=== PATIENT | male | born 1955 | race Caucasian/White ===

== ENCOUNTER 2020-05-15 07:34 | Day surgery (SDC) | payer MEDICARE ==
[2020-05-15] MEDS ORDERED: Xylocaine 1% Vial 30 ML PF IJ ONE (07:35)
[2020-05-15] MEDS ORDERED: Marcaine 0.5% SDV 10 ML IJ ONE (07:35)
[2020-05-15] MEDS ORDERED: Depo-Medrol 40 MG/ML IM ONE (07:35)
[2020-05-15] MEDS ORDERED: DIPRIVAN 200 MG/20 ML IV ONE (09:41)
[2020-05-15] MEDS ORDERED: Ketamine HCl 50 MG/ML ONE (09:42)
[2020-05-15] MEDS ORDERED: Lactated Ringers 1,000 ML IV ONE (13:51)
--- NOTE | 2020-05-18 17:44 | XRAY ---
Indication: Bilateral sacroiliac joints. Intraoperative fluoroscopy was provided for 14 seconds. PA and lateral digital spot films of each sacroiliac joint were obtained. A needle tip has been directed toward the inferior margin of each sacroiliac joint. Correlate with intraoperative findings/report.
--- NOTE | 2020-05-20 07:45 | XRAY ---
14 seconds fluoroscopy time in surgery for bilateral SI joint injections.
== END 2020-05-15 10:06 | disposition home or self-care (01) ==
LOC: SDC-PAIN 07:34
PROVIDERS: ATTEND Psychiatry & Neurology Pain Medicine
DX: M46.1 Sacroiliitis, not elsewhere classified (principal); E11.9 Type 2 diabetes mellitus without complications; I10 Essential (primary) hypertension; K21.9 Gastro-esophageal reflux disease without esophagitis; F41.9 Anxiety disorder, unspecified
CPT/HCPCS: 72202; 77002; 82962; G0260; 27096; J1030; J2001; J2704

== ENCOUNTER 2021-05-07 09:20 | Day surgery (SDC) | payer MEDICARE ==
[2021-05-07] MEDS ORDERED: LIDOCAINE HCL 2% 100 MG/5 ML IJ ONE (09:21)
--- NOTE | 2021-05-07 16:07 | XRAY ---
28 seconds of fluoroscopy was used in surgery for a bilateral L4-L5, L5-S1 MBB.
[2021-05-07] MEDS ORDERED: Lactated Ringers 1,000 ML IV ONE (17:31)
== END 2021-05-07 12:50 | disposition home or self-care (01) ==
LOC: SDC-PAIN 09:20
PROVIDERS: ATTEND Psychiatry & Neurology Pain Medicine
DX: M47.816 Spondylosis without myelopathy or radiculopathy, lumbar region (principal); E11.9 Type 2 diabetes mellitus without complications; I10 Essential (primary) hypertension; Z79.899 Other long term (current) drug therapy
CPT/HCPCS: 64493; 64494; 72020; 77002; 82947

== ENCOUNTER 2021-06-18 08:49 | Day surgery (SDC) | payer MEDICARE ==
[2021-06-18] MEDS ORDERED: BUPIVACAINE 0.5% VIAL IJ ONE (08:50)
[2021-06-18] MEDS ORDERED: Lactated Ringers 1,000 ML IV ONE (09:46)
[2021-06-18] MEDS ORDERED: DIPRIVAN 200 MG/20 ML IV ONE (10:46)
--- NOTE | 2021-06-18 11:42 | XRAY ---
19 seconds fluoroscopy time in surgery for bilateral L4-S1 MBB.
--- NOTE | 2021-06-18 11:42 | XRAY ---
Indication: Bilateral L4-S1 MBB. Intraoperative fluoroscopy provided for 19 seconds. Single digital spot image submitted for interpretation demonstrates posterior needle tips projecting over the expected left and right L4-S1 S1 nerve roots. Correlate with intraoperative findings/report.
== END 2021-06-18 11:18 | disposition home or self-care (01) ==
LOC: SDC-PAIN 08:49
PROVIDERS: ATTEND Psychiatry & Neurology Pain Medicine
DX: M47.816 Spondylosis without myelopathy or radiculopathy, lumbar region (principal); E11.9 Type 2 diabetes mellitus without complications; Z79.899 Other long term (current) drug therapy
CPT/HCPCS: 64493; 64494; 72020; 77002; 82947; J2704

== ENCOUNTER 2021-09-05 06:47 | Day surgery (SDC) | payer MEDICARE ==
[2021-09-05] MEDS ORDERED: BUPIVACAINE 0.5% VIAL IJ ONE (06:48)
[2021-09-05] MEDS ORDERED: Depo-Medrol 40 MG/ML IM ONE (06:48)
[2021-09-05] MEDS ORDERED: Xylocaine 1% Vial 30 ML PF IJ ONE (06:48)
[2021-09-05] MEDS ORDERED: DIPRIVAN 200 MG/20 ML IV ONE (07:58)
[2021-09-05] MEDS ORDERED: Ketamine HCl 50 MG/ML ONE (07:58)
[2021-09-05] MEDS ORDERED: Xylocaine-Mpf 2% 5 Ml Vial ONE (08:01)
[2021-09-05] MEDS ORDERED: Lactated Ringers 1,000 ML IV ONE (08:58)
--- NOTE | 2021-09-05 10:43 | XRAY ---
Indication: Right L4-S1 RFA. Intraoperative fluoroscopy provided for 40 seconds. 3 digital spot image submitted for interpretation demonstrate posterior needle tips projecting over the expected right L4-S1 nerve roots. Correlate with intraoperative findings/report.
--- NOTE | 2021-09-05 12:23 | XRAY ---
40 seconds fluoroscopy time in surgery for right L4-S1 RFA.
== END 2021-09-05 08:16 | disposition home or self-care (01) ==
LOC: SDC-PAIN 06:47
PROVIDERS: ATTEND Psychiatry & Neurology Pain Medicine
DX: M47.816 Spondylosis without myelopathy or radiculopathy, lumbar region (principal); E11.9 Type 2 diabetes mellitus without complications; I10 Essential (primary) hypertension; F41.9 Anxiety disorder, unspecified; Z79.899 Other long term (current) drug therapy
CPT/HCPCS: 64635; 64636; 72100; 77002; 82947; J1030; J2001; J2704

== ENCOUNTER 2021-09-10 11:20 | Day surgery (SDC) | payer MEDICARE ==
[~2021-09-10 11:20] MED LIST: DIPRIVAN 200 MG/20 ML IV ONE; Ketamine HCl 50 MG/ML ONE; Lactated Ringers 1,000 ML IV ONE
[2021-09-10] MEDS ORDERED: Xylocaine 1% Vial 30 ML PF IJ ONE (11:21)
[2021-09-10] MEDS ORDERED: BUPIVACAINE 0.5% VIAL IJ ONE (11:21)
[2021-09-10] MEDS ORDERED: Depo-Medrol 40 MG/ML IM ONE (11:21)
[2021-09-10] MEDS ORDERED: Xylocaine-Mpf 2% 5 Ml Vial ONE (12:29)
--- NOTE | 2021-09-10 14:12 | XRAY ---
Indication: Left L4-S1 RFA. Intraoperative fluoroscopy provided for 22 seconds. 4 digital spot image submitted for interpretation demonstrates posterior needle tips projecting over the expected left L4-S1 nerve roots. Correlate with intraoperative findings/report.
--- NOTE | 2021-09-10 15:27 | XRAY ---
22 seconds of fluoroscopy was used in surgery for a left L4-S1 RFA.
== END 2021-09-10 13:02 | disposition home or self-care (01) ==
LOC: SDC-PAIN 11:20
PROVIDERS: ATTEND Psychiatry & Neurology Pain Medicine
DX: M47.816 Spondylosis without myelopathy or radiculopathy, lumbar region (principal); Z79.891 Long term (current) use of opiate analgesic; I10 Essential (primary) hypertension; E11.8 Type 2 diabetes mellitus with unspecified complications
CPT/HCPCS: 64635; 64636; 72100; 77002; 82947; J1030; J2001; J2704

== ENCOUNTER 2022-02-04 08:32 | Day surgery (SDC) | payer MEDICARE ==
[2022-02-04] MEDS ORDERED: Sodium Chloride 0.9(Preservative Free) 10 ML IJ ONE (08:33)
[2022-02-04] MEDS ORDERED: Depo-Medrol 40 MG/ML IM ONE (08:33)
[2022-02-04] MEDS ORDERED: Lactated Ringers 1,000 ML IV ONE (10:40)
[2022-02-04] MEDS ORDERED: DIPRIVAN 200 MG/20 ML IV ONE ×2 (10:50→10:59)
--- NOTE | 2022-02-04 11:55 | XRAY ---
Indication: Left L4-S1 transforaminal QUINCY Intraoperative fluoroscopy provided for 52 seconds. 4 digital spot image submitted for interpretation demonstrates posterior needle tips projecting over the expected left L4 and L5 nerve roots. Small amount of contrast injected for needle tip placement. Correlate with intraoperative findings/report.
--- NOTE | 2022-02-04 12:11 | XRAY ---
52 seconds fluoroscopy time in surgery for left L4-S1 transforaminal QUINCY.
== END 2022-02-04 11:22 | disposition home or self-care (01) ==
LOC: SDC-PAIN 08:32
PROVIDERS: ATTEND Psychiatry & Neurology Pain Medicine
DX: M54.16 Radiculopathy, lumbar region (principal); E11.9 Type 2 diabetes mellitus without complications; Z79.899 Other long term (current) drug therapy
CPT/HCPCS: 64483; 64484; 72100; 77003; 82947; J1030; J2704; Q9966

== ENCOUNTER 2022-07-29 08:30 | Day surgery (SDC) | payer MEDICARE ==
[2022-07-29] MEDS ORDERED: Marcaine Mpf 0.5% Vial 30 Ml IJ ONE (08:31)
[2022-07-29] MEDS ORDERED: Depo-Medrol 40 MG/ML IM ONE (08:31)
[2022-07-29] MEDS ORDERED: Versed 2 MG/2 ML Injection ONE (09:30)
[2022-07-29] MEDS ORDERED: Lactated Ringers 1,000 ML IV ONE (10:19)
[2022-07-29] MEDS ORDERED: DIPRIVAN 200 MG/20 ML IV ONE (10:34)
--- NOTE | 2022-07-29 12:24 | XRAY ---
Indication: Left SI joint injection. Intraoperative fluoroscopy provided for 8 seconds. 2 digital spot image submitted for interpretation demonstrates posterior needle tip projecting over the left SI joint. Correlate with intraoperative findings/report.
--- NOTE | 2022-07-29 13:23 | XRAY ---
8 seconds of fluoroscopy was used in surgery for a left SI joint injection.
== END 2022-07-29 11:00 | disposition home or self-care (01) ==
LOC: SDC-PAIN 08:30
PROVIDERS: ATTEND Psychiatry & Neurology Pain Medicine
DX: M46.1 Sacroiliitis, not elsewhere classified (principal); E11.9 Type 2 diabetes mellitus without complications; Z79.899 Other long term (current) drug therapy
CPT/HCPCS: 01992; 27096; 72170; 77002; 82947; 93005; G0260; J1030; J2250; J2704

== ENCOUNTER 2023-07-07 08:40 | Day surgery (SDC) | payer MEDICARE ==
[2023-07-07] MEDS ORDERED: BUPIVACAINE 0.5% VIAL IJ ONE (08:41)
[2023-07-07] MEDS ORDERED: LIDOCAINE HCL 2% 100 MG/5 ML IJ ONE (08:41)
[2023-07-07] MEDS ORDERED: Depo-Medrol 40 MG/ML IM ONE ×2 (08:41)
[2023-07-07] MEDS ORDERED: DIPRIVAN 200 MG/20 ML IV ONE (10:57)
[2023-07-07] MEDS ORDERED: Lactated Ringers 1,000 ML IV ONE (11:19)
--- NOTE | 2023-07-07 12:34 | XRAY ---
Indication: Right shoulder injection. Intraoperative fluoroscopy provided for 8 seconds. Single digital spot image submitted for interpretation demonstrates needle tip projecting over the right glenohumeral joint superiorly. Small amount of contrast injected for needle tip placement. Correlate with intraoperative findings/report.
--- NOTE | 2023-07-07 13:58 | XRAY ---
8 seconds of fluoroscopy was used in surgery for a right intra-articular shoulder injection.
== END 2023-07-07 11:25 | disposition home or self-care (01) ==
LOC: SDC-PAIN 08:40
PROVIDERS: ATTEND Psychiatry & Neurology Pain Medicine
DX: M19.011 Primary osteoarthritis, right shoulder (principal); E11.9 Type 2 diabetes mellitus without complications; Z79.899 Other long term (current) drug therapy
CPT/HCPCS: 20610; 73030; 77002; 82947; J1030; J2704

== ENCOUNTER 2023-12-22 06:54 | Day surgery (SDC) | payer MEDICARE ==
[2023-12-22] MEDS ORDERED: BUPIVACAINE 0.5% VIAL IJ ONE (06:55)
[2023-12-22] MEDS ORDERED: Depo-Medrol 40 MG/ML IM ONE (06:55)
[2023-12-22] MEDS ORDERED: XYLOCAINE-MPF 1% 5ML SDV IJ ONE (06:55)
[2023-12-22] MEDS ORDERED: DIPRIVAN 200 MG/20 ML IV ONE ×2 (08:03→08:26)
--- NOTE | 2023-12-22 10:45 | XRAY ---
Indication: Right L4-S1 RFA. Intraoperative fluoroscopy provided for 31 seconds. 3 digital spot image submitted for interpretation demonstrates posterior needle tips projecting over the expected right L4-S1 nerve roots. Correlate with intraoperative findings/report.
--- NOTE | 2023-12-22 10:51 | XRAY ---
31 seconds of fluoroscopy was used in surgery for a right L4-S1 RFA.
[2023-12-22] MEDS ORDERED: Lactated Ringers 1,000 ML IV ONE (11:49)
== END 2023-12-22 08:45 | disposition home or self-care (01) ==
LOC: SDC-PAIN 06:54
PROVIDERS: ATTEND Psychiatry & Neurology Pain Medicine
DX: M47.816 Spondylosis without myelopathy or radiculopathy, lumbar region (principal); E11.9 Type 2 diabetes mellitus without complications
CPT/HCPCS: 64635; 64636; 72100; 77002; 82947; J1030; J2704

== ENCOUNTER 2023-12-29 06:31 | Day surgery (SDC) | payer MEDICARE ==
[2023-12-29] MEDS ORDERED: LIDOCAINE HCL 1% 50 MG/5 ML VL PF IJ ONE (06:32)
[2023-12-29] MEDS ORDERED: Depo-Medrol 40 MG/ML IM ONE (06:32)
[2023-12-29] MEDS ORDERED: BUPIVACAINE 0.5% VIAL IJ ONE (06:32)
[2023-12-29] MEDS ORDERED: DIPRIVAN 200 MG/20 ML IV ONE ×2 (07:42→08:24)
[2023-12-29] MEDS ORDERED: Lactated Ringers 1,000 ML IV ONE (09:56)
--- NOTE | 2023-12-29 10:23 | XRAY ---
Indication: Left L4-S1 RFA. Intraoperative fluoroscopy provided for 34 seconds. 3 digital spot image submitted for interpretation demonstrates posterior needle tips projecting over expected left L4-S1 nerve roots. Correlate with intraoperative findings/report.
--- NOTE | 2023-12-29 10:39 | XRAY ---
34 seconds of fluoroscopy was used in surgery for a left L4-S1 RFA.
== END 2023-12-29 08:54 | disposition home or self-care (01) ==
LOC: SDC-PAIN 06:31
PROVIDERS: ATTEND Psychiatry & Neurology Pain Medicine
DX: M54.16 Radiculopathy, lumbar region (principal); E11.9 Type 2 diabetes mellitus without complications
CPT/HCPCS: 64493; 64494; 72100; 77002; 82947; J1030; J2001; J2704

== ENCOUNTER 2024-09-06 06:35 | Day surgery (SDC) | payer MEDICARE ==
[2024-09-06] MEDS ORDERED: BUPIVACAINE 0.5% VIAL IJ ONE (06:36)
[2024-09-06] MEDS ORDERED: Depo-Medrol 40 MG/ML IM ONE (06:36)
[2024-09-06] MEDS ORDERED: DIPRIVAN 200 MG/20 ML IV ONE ×2 (08:24→08:31)
--- NOTE | 2024-09-06 10:27 | XRAY ---
Indication: Bilateral SI joint injection Intraoperative fluoroscopy provided for 30 seconds. 3 digital spot image submitted for interpretation demonstrates posterior needle tips projecting over the left and right SI joints. Small amount of contrast injected for needle tip placement. Correlate with intraoperative findings/report.
--- NOTE | 2024-09-06 11:31 | XRAY ---
30 seconds of fluoroscopy was used in surgery for a bilateral sacroiliac joint injection.
== END 2024-09-06 08:54 | disposition home or self-care (01) ==
LOC: SDC-PAIN 06:35
PROVIDERS: ATTEND Psychiatry & Neurology Pain Medicine
DX: M46.1 Sacroiliitis, not elsewhere classified (principal); E11.9 Type 2 diabetes mellitus without complications
CPT/HCPCS: 27096; 72202; 77002; 82947; J2704; Q9966

== ENCOUNTER 2024-12-07 06:40 | Day surgery (SDC) | payer MEDICARE ==
[2024-12-07] MEDS ORDERED: LIDOCAINE HCL 2% 100 MG/5 ML IJ ONE (06:41)
[2024-12-07] MEDS ORDERED: propofoL IV ONE ×2 (08:35→08:45)
--- NOTE | 2024-12-07 10:40 | XRAY ---
Indication: Bilateral L2-L4 MBB. Intraoperative fluoroscopy provided for 27 seconds. Single digital spot image submitted for interpretation demonstrates posterior needle tips projecting over expected left and right L2-L4 nerve roots. Correlate with intraoperative findings/report.
--- NOTE | 2024-12-07 13:12 | XRAY ---
27 seconds of fluoroscopy was used in surgery for a bilateral L2-L4 MBB.
== END 2024-12-07 09:15 | disposition home or self-care (01) ==
LOC: SDC-PAIN 06:40
PROVIDERS: ATTEND Psychiatry & Neurology Pain Medicine
DX: M47.816 Spondylosis without myelopathy or radiculopathy, lumbar region (principal); E11.9 Type 2 diabetes mellitus without complications
CPT/HCPCS: 64493; 64494; 72020; 77002; 82947; J2704

== ENCOUNTER 2025-01-10 06:28 | Day surgery (SDC) | payer MEDICARE ==
[2025-01-10] MEDS ORDERED: BUPIVACAINE 0.5% VIAL IJ ONE (06:29)
[2025-01-10] MEDS ORDERED: Lactated Ringers 500 ML IV ONE (06:57)
[2025-01-10] MEDS ORDERED: propofoL IV ONE (08:31)
--- NOTE | 2025-01-10 12:30 | XRAY ---
Indication: Bilateral L2-L4 MBB. Intraoperative fluoroscopy provided for 15 seconds. 2 digital spot images submitted for interpretation demonstrates posterior needle tips projecting over expected left and right L2-L4 nerve roots. Correlate with intraoperative findings/report.
--- NOTE | 2025-01-10 12:54 | XRAY ---
15 seconds of fluoroscopy was used in surgery for a bilateral L2-L4 MBB.
== END 2025-01-10 09:05 | disposition home or self-care (01) ==
LOC: SDC-PAIN 06:28
PROVIDERS: ATTEND Psychiatry & Neurology Pain Medicine
DX: M47.816 Spondylosis without myelopathy or radiculopathy, lumbar region (principal); E11.9 Type 2 diabetes mellitus without complications
CPT/HCPCS: 64493; 64494; 72020; 77002; 82947; J2704

== ENCOUNTER 2025-01-31 07:09 | Day surgery (SDC) | payer MEDICARE ==
[2025-01-31] MEDS ORDERED: LIDOCAINE HCL 1% AMPUL 5 ML IJ ONE (07:10)
[2025-01-31] MEDS ORDERED: BUPIVACAINE 0.5% VIAL IJ ONE (07:10)
[2025-01-31] MEDS ORDERED: Depo-Medrol 40 MG/ML IM ONE (07:10)
[2025-01-31] MEDS ORDERED: Lactated Ringers 500 ML IV ONE (07:35)
[2025-01-31] MEDS ORDERED: propofoL IV ONE (08:57)
--- NOTE | 2025-01-31 11:31 | XRAY ---
Indication: Left L2-L4 RFA. Intraoperative fluoroscopy provided for 32 seconds. 4 digital spot image submitted for interpretation demonstrates posterior needle tips projecting over expected left L2-L4 nerve roots. Correlate with intraoperative findings/report.
--- NOTE | 2025-01-31 12:13 | XRAY ---
32 seconds of fluoroscopy used in surgery for a left L2-L4 RFA.
== END 2025-01-31 09:35 | disposition home or self-care (01) ==
LOC: SDC-PAIN 07:09
PROVIDERS: ATTEND Psychiatry & Neurology Pain Medicine
DX: M47.816 Spondylosis without myelopathy or radiculopathy, lumbar region (principal); E11.9 Type 2 diabetes mellitus without complications
CPT/HCPCS: 64635; 64636; 72100; 82947; 99100; J2704

== ENCOUNTER 2025-02-07 06:29 | Day surgery (SDC) | payer MEDICARE ==
[2025-02-07] MEDS ORDERED: BUPIVACAINE 0.5% VIAL IJ ONE (06:30)
[2025-02-07] MEDS ORDERED: LIDOCAINE HCL 1% AMPUL 5 ML IJ ONE (06:30)
[2025-02-07] MEDS ORDERED: Depo-Medrol 40 MG/ML IM ONE (06:30)
[2025-02-07] MEDS ORDERED: Lactated Ringers 500 ML IV ONE (07:17)
[2025-02-07] MEDS ORDERED: propofoL IV ONE (08:19)
--- NOTE | 2025-02-07 11:38 | XRAY ---
Indication: Right L2-L4 RFA. Intraoperative fluoroscopy provided for 36 seconds. 3 digital spot image submitted for interpretation demonstrates posterior needle tips projecting over expected right L2-L4 nerve roots. Correlate with intraoperative findings/report.
--- NOTE | 2025-02-07 12:57 | XRAY ---
36 seconds of fluoroscopy was used in surgery for a right L2-L4 RFA.
== END 2025-02-07 08:45 | disposition home or self-care (01) ==
LOC: SDC-PAIN 06:29
PROVIDERS: ATTEND Psychiatry & Neurology Pain Medicine
DX: M47.817 Spondylosis without myelopathy or radiculopathy, lumbosacral region (principal); E11.9 Type 2 diabetes mellitus without complications
CPT/HCPCS: 64635; 64636; 72100; 82947; 99100; J2704